=== PATIENT | male | born 1955 | race Caucasian/White ===

== ENCOUNTER → 2017-08-22 | Outpatient (CLI) | payer OTHER ==
--- NOTE | 2017-08-22 13:24 | RADIOLOGY REPORT PS360 ---
EXAM: LUMBAR SPINE 5 VIEWS HISTORY: BACK PAIN ORDERING PHYSICIAN: Eloy Chaudhari MD PATIENT AGE: 62 years COMPARISON: None FINDINGS: Normal alignment. No fracture or dislocation. No lytic or blastic change. There is mild degenerative disc disease from L2 to L5 with small endplate osteophytes. There is mild loss of height anteriorly of T12 which is chronic. Mild facet sclerotic changes are present at L5-S1. IMPRESSION: 1. No acute finding. 2. Lumbar spondylosis with degenerative disc disease and facet arthritic change as detailed above
== END ==
LOC: RAD 11:35
DX: M54.5 Low back pain (principal)